=== PATIENT | male | born 1970 | race Caucasian/White ===

== ENCOUNTER 2023-08-07 00:30 | Emergency (ER) | payer OTHER ==
--- NOTE | 2023-08-07 01:22 | XR ---
EXAMINATION TYPE: XR chest 2V DATE OF EXAM: 08/07/2023 COMPARISON: Chest x-ray April 20, 2013 HISTORY: Chest pain. TECHNIQUE: Frontal and lateral views of the chest are obtained. FINDINGS: There is no focal air space opacity, pleural effusion, or pneumothorax seen. The cardiac silhouette size is stable and within normal limits. The osseous structures are intact. IMPRESSION: No acute process.
--- NOTE | 2023-08-07 02:08 | ED ---
Chest Pain HPI - General Chief Complaint: Chest Pain Stated Complaint: chest pain,vomitting Time Seen by Provider: 08/07/23 01:46 Source: patient, RN notes reviewed, old records reviewed Mode of arrival: ambulatory Limitations: no limitations - History of Present Illness Initial Comments: This is a 53-year-old male to ER for evaluation of chest pain. Patient has significant long history of heroin use and abuse and currently going through active withdrawal. Patient feels shaky lightheaded dizzy sweaty at times. But chest pain is significant. Patient has no recent illness no shortness of breath no travel history or sick contacts. No history of heart disease patient does suffer from COPD MD Complaint: chest pain -: days(s) (2) Pain Location: substernal, left chest, right chest, epigastric Pain Radiation: back Severity: moderate Severity scale (1-10): 7 Quality: sharp Consistency: constant, intermittent Worsens With: nothing Anginal Symptoms: nausea, vomiting, dyspnea, sense of impending doom Other Symptoms: palpitations Treatments Prior to Arrival: none - Related Data Allergies Allergy/AdvReac Type Severity Reaction Status Date / Time No Known Allergies Allergy Verified 08/07/23 00:35 Review of Systems ROS Statement: Those systems with pertinent positive or pertinent negative responses have been documented in the HPI. ROS Other: All systems not noted in ROS Statement are negative. EKG Findings - EKG Comments: EKG Findings:: EKG is sinus tachycardia 111 FL 155 QRS 101 QTc 400 Past Medical History Past Medical History: COPD Additional Past Medical History / Comment(s): aortic anerysum, pulmonary dissection History of Any Multi-Drug Resistant Organisms: None Reported Past Psychological History: No Psychological Hx Reported Smoking Status: Current every day smoker Past Alcohol Use History: None Reported Past Drug Use History: Heroin, Marijuana General Exam Limitations: altered mental status General appearance: alert, in no apparent distress, anxious, in distress Head exam: Present: atraumatic, normocephalic, normal inspection Eye exam: Present: normal appearance, PERRL, EOMI. Absent: scleral icterus, conjunctival injection, periorbital swelling ENT exam: Present: normal exam, mucous membranes moist Neck exam: Present: normal inspection. Absent: tenderness, meningismus, lymphad enopathy Respiratory exam: Present: normal lung sounds bilaterally. Absent: respiratory distress, wheezes, rales, rhonchi, stridor Cardiovascular Exam: Present: regular rate, normal rhythm, normal heart sounds. Absent: systolic murmur, diastolic murmur, rubs, gallop, clicks GI/Abdominal exam: Present: soft, normal bowel sounds. Absent: distended, tenderness, guarding, rebound, rigid Extremities exam: Present: normal inspection, full ROM, normal capillary refill. Absent: tenderness, pedal edema, joint swelling, calf tenderness Back exam: Present: normal inspection Neurological exam: Present: alert, oriented X3, CN II-XII intact Psychiatric exam: Present: normal affect, normal mood Skin exam: Present: warm, dry, intact, normal color. Absent: rash Course Vital Signs 08/07/23 08/07/23 08/07/23 00:33 02:30 03:06 Temperature 98.1 F 97.5 F L Pulse Rate 119 H 71 94 Respiratory 20 18 20 Rate Blood Pressure 125/106 130/113 O2 Sat by Pulse 96 95 97 Oximetry 08/07/23 08/07/23 08/07/23 03:30 04:00 04:30 Temperature Pulse Rate 76 77 83 Respiratory 17 18 16 Rate Blood Pressure 130/113 141/118 146/101 O2 Sat by Pulse 94 L 97 95 Oximetry 08/07/23 04:37 Temperature Pulse Rate 84 Respiratory 17 Rate Blood Pressure 115/94 O2 Sat by Pulse 92 L Oximetry - Reevaluation(s) Reevaluation #1: 08/07/23 02:07 Medical record is reviewed Reevaluation #2: 08/07/23 02:07 Patient symptoms are improving Reevaluation #3: 08/07/23 02:07 Patient informed of results and questions answered Studies Chest x-ray is negative for acute disease Reevaluation #4: Was pt. sent in by a medical professional or institution (, PA, BUNK HOUSE WORKER, urgent care, hospital, or care home...) When possible be specific @ -no Did you speak to anyone other than the patient for history (EMS, parent, family, police, friend...)? What history was obtained from this source @ -no Did you review nursing and triage notes (agree or disagree)? Why? @ -agree Are old charts reviewed (outside hosp., previous admission, EMS record, old EKG, old radiological studies, urgent care reports/EKG's, care home records)? Report findings @ -yes Differential Diagnosis (chest pain, altered mental status, abdominal pain women, abdominal pain men, vaginal bleeding, weakness, fever, dyspnea, syncope, headache, dizziness, GI bleed, back pain, seizure, CVA, palpatations, mental health, musculoskeletal)? @ -prior EKG interpreted by me (3pts min.). @ -yes X-rays interpreted by me (1pt min.). @ -yes negative for acute disease CT interpreted by me (1pt min.). @ -no U/S interpreted by me (1pt. min.). @ -no What testing was considered but not performed or refused? (CT, X-rays, U/S, labs)? Why? @ -none What meds were considered but not given or refused? Why? @ -none Did you discuss the management of the patient with other professionals (professionals i.e. , PA, BUNK HOUSE WORKER, lab, RT, psych nurse, long term care social worker, clerical order filler, teacher, correction officer, transplant case manager)? Give summary @ -no Was smoking cessation discussed for >3mins.? @ -no Was critical care preformed (if so, how long)? @ -no Were there social determinants of health that impacted care today? How? (Homelessness, low income, unemployed, alcoholism, drug addiction, transportation, low edu. Level, literacy, decrease access to med. care, shelter, rehab)? @ -none Was there de-escalation of care discussed even if they declined (Discuss DNR or withdrawal of care, Hospice)? DNR status @ -no What co-morbidities impacted this encounter? (DM, HTN, Smoking, COPD, CAD, Cancer, CVA, ARF, Chemo, Hep., AIDS, mental health diagnosis, sleep apnea, morbid obesity)? @ -none Was patient admitted / discharged? Hospital course, mention meds given and route, prescriptions, significant lab abnormalities, going to OR and other pertinent info. @ - 53 male to ER for evaluation of chest pain today. Chest pain is resolved here in the ER testing is normal, patient feels well and can be discharged home Discharge Undiagnosed new problem with uncertain prognosis? @ -no Drug Therapy requiring intensive monitoring for toxicity (Heparin, Nitro, Insulin, Cardizem)? @ -no Were any procedures done? @ -no Diagnosis/symptom? @ -Chest pain Acute, or Chronic, or Acute on Chronic? @ -Acute Uncomplicated (without systemic symptoms) or Complicated (systemic symptoms)? @ -Complicated Side effects of treatment? @ -no Exacerbation, Progression, or Severe Exacerbation? @ -exacerbation Poses a threat to life or bodily function? How? (Chest pain, USA, MD, pneumonia, PE, COPD, DKA, ARF, appy, cholecystitis, CVA, Diverticulitis, Homicidal, Suic idal, threat to staff... and all critical care pts) @ -yes with cause of chest pain Reevaluation #5: Differential Chest Pain: Stable Angina, Unstable Angina, STEMI, NSTEMI Aortic Dissection, Pneumothorax, Musculoskeletal, Esophageal Spasm GERD, Cholecystitis, Pancreatitis, Zoster, this is not meant to be an all-inclusive list. Chest Pain MDM - MDM 53 male to ER for evaluation of chest pain today. Chest pain is resolved here in the ER testing is normal, patient feels well and can be discharged home Disposition Clinical Impression: Atypical chest pain, Opioid withdrawal Disposition: HOME SELF-CARE Condition: Fair Instructions (If sedation given, give patient instructions): Opioid Withdrawal (ED) Is patient prescribed a controlled substance at d/c from ED?: No Referrals: Ora Shelley MD [Primary Care Provider] - 1-2 days Time of Disposition: 04:30
[2023-08-07] MEDS: cloNIDine 0.3 MG/24HR PATCH TRANSDERM STA (02:32)
[2023-08-07] MEDS: HYDROmorphone 1 MG/ML 1 ML SYRINGE IVP STA (02:35)
[2023-08-07] MEDS: SODIUM CHLORIDE 0.9% 1,000 ML IV STA (02:52)
[2023-08-07] MEDS: SODIUM CHLORIDE 0.9% 500 ML 500 ML IV STA (02:53)
[2023-08-07] MEDS: PROCHLORPERAZINE INJ 10 MG/2 ML VIAL IVP STA (02:55)
[2023-08-07 02:58] LABS: Basophils # (A) 0.1 k/uL (0-0.2); Basophils % (A) 1 %; Eosinophils # (A) 0.2 k/uL (0-0.7); Eosinophils % (A) 1 %; HCT 42.8 % (39.0-53.0); HGB 14.5 gm/dL (13.0-17.5); Lymphocytes % (A) 18 %; MCH 29.7 pg (25.0-35.0); MCHC 33.9 g/dL (31.0-37.0); MCV 87.7 fL (80.0-100.0); Mean Platelet Volume 7.2; Monocytes # (A) 0.6 k/uL (0-1.0); Monocytes % (A) 6 %; Neutrophils # (A) 8.4 k/uL (1.3-7.7); Neutrophils % (A) 74 %; Platelet Count 227 k/uL (150-450); RBC 4.88 m/uL (4.30-5.90); RDW 13.3 % (11.5-15.5); WBC 11.4 k/uL (3.8-10.6)
[2023-08-07] MEDS: cloNIDine HCL 0.1 MG TAB PO STA (02:58)
[2023-08-07] MEDS: KETOROLAC 15 MG/ML 1 ML VIAL IVP STA (02:59)
[2023-08-07 03:09] LABS: INR 1.2 (<1.2); Prothrombin Time 12.5 sec (10.0-12.5)
[2023-08-07 03:11] LABS: ALT 20 U/L (4-49); AST 25 U/L (17-59); African American GFR (CKD) >90 (>60 ml/min/1.73 sqM); Albumin 4.6 g/dL (3.5-5.0); Alkaline Phosphatase 81 U/L (38-126); Anion Gap 8 mmol/L; Blood Urea Nitrogen 16 mg/dL (9-20); Calcium 9.7 mg/dL (8.4-10.2); Carbon Dioxide 23 mmol/L (22-30); Chloride 108 mmol/L (98-107); Glucose 110 mg/dL (74-99); Magnesium 2.2 mg/dL (1.6-2.3); Non-African American GFR(CKD) 87 (>60 ml/min/1.73 sqM); Potassium 4.1 mmol/L (3.5-5.1); Sodium 139 mmol/L (137-145); Total Bilirubin 0.8 mg/dL (0.2-1.3); Total Protein 7.9 g/dL (6.3-8.2)
[2023-08-07 03:27] VITALS: TEMP 97.5
[2023-08-07] MEDS: SODIUM CHLORIDE 0.9% 1,000 ML IV SCH (03:59)
[2023-08-07 04:50] VITALS: BP 115/94; PULSE 84; RESP 17
== END 2023-08-07 04:54 | disposition home or self-care (01) ==
LOC: EC 00:30
DX: R07.89 Other chest pain (principal); F11.23 Opioid dependence with withdrawal; J44.9 Chronic obstructive pulmonary disease, unspecified; F12.90 Cannabis use, unspecified, uncomplicated; F17.200 Nicotine dependence, unspecified, uncomplicated
CPT/HCPCS: 99285 ×2; 96374 ×2; 96375 ×3; 96361 ×4; 36415; 93005; 80053; 83735; 84484; 85025; 85610; 85730; 71046; J0780; J3360; J1885

== ENCOUNTER 2023-08-29 14:42 | Observation (INO) | payer OTHER ==
[2023-08-29] MEDS: NITROGLYCERIN SL TABS 0.4 MG TAB SUBLINGUAL STA (16:37)
[2023-08-29] MEDS: ONDANSETRON 4 MG/2 ML VIAL IVP STA (16:38)
[2023-08-29] MEDS: SODIUM CHLORIDE 0.9% 1,000 ML IV STA ×2 (16:39→18:04)
[2023-08-29] MEDS: LORazepam 2 MG/ML INJ IV STA (16:40)
--- NOTE | 2023-08-29 16:41 | ED ---
Chest Pain HPI - General Chief Complaint: Chest Pain Stated Complaint: Chest pain/SOB/Vomitting Time Seen by Provider: 08/29/23 15:29 Source: patient, RN notes reviewed, old records reviewed Mode of arrival: wheelchair Limitations: no limitations - History of Present Illness Initial Comments: 53-year-old male with a history of aortic pathology who admits to being a heroin addict also drinking alcohol who presents today with complaints of nausea vomiting for the last several days he has not had any heroin for the past several days complains of chest pain 8/10 in severity gets sometimes worse sometimes better central in his chest and does get worse with movement not worse with deep breathing he was short of breath with this also however no cough no fevers or chills he is nauseated still at this time. No abdominal complaints MD Complaint: chest pain, other - Related Data Home Medications Medication Instructions Recorded Confirmed Fluticasone Propion/Salmeterol 1 puff INHALATION RT-BID 08/29/23 08/29/23 [Wixela [id number] Inhub] Metoprolol Tartrate [Lopressor] 12.5 mg PO BID 08/29/23 08/29/23 Omeprazole 20 mg PO DAILY 08/29/23 08/29/23 Ondansetron Odt [Zofran Odt] 4 mg PO Q8HR PRN 08/29/23 08/29/23 cloNIDine HCL [Catapres] 0.1 mg PO DIRECTED 08/29/23 08/29/23 lisinopriL 40 mg PO DAILY 08/29/23 08/29/23 Allergies Allergy/AdvReac Type Severity Reaction Status Date / Time No Known Allergies Allergy Verified 08/29/23 17:59 Review of Systems ROS Statement: Those systems with pertinent positive or pertinent negative responses have been documented in the HPI. ROS Other: All systems not noted in ROS Statement are negative. Past Medical History Past Medical History: COPD Additional Past Medical History / Comment(s): aortic anerysum, pulmonary dissection History of Any Multi-Drug Resistant Organisms: None Reported Past Surgical History: Cholecystectomy Past Psychological History: No Psychological Hx Reported Smoking Status: Current every day smoker Past Alcohol Use History: None Reported Past Drug Use History: Heroin, Marijuana General Exam - General Exam Comments Initial Comments: This is a well-developed well-nourished awake alert oriented x 4 male Limitations: no limitations General appearance: alert, anxious Head exam: Present: atraumatic, normocephalic, normal inspection Eye exam: Present: normal appearance, PERRL, EOMI. Absent: scleral icterus, conjunctival injection, periorbital swelling ENT exam: Present: normal exam, mucous membranes moist Neck exam: Present: normal inspection, full ROM, other (No stridor JVD or bruits). Absent: tenderness, meningismus, lymphadenopathy Respiratory exam: Present: normal lung sounds bilaterally, chest wall tenderness. Absent: respiratory distress, wheezes, rales, rhonchi, stridor Cardiovascular Exam: Present: normal rhythm, tachycardia, normal heart sounds. Absent: systolic murmur, diastolic murmur, rubs, gallop, clicks GI/Abdominal exam: Present: soft, normal bowel sounds. Absent: distended, tenderness, guarding, rebound, rigid, bruit, pulsatile mass Extremities exam: Present: normal inspection, full ROM, normal capillary refill. Absent: tenderness, pedal edema, joint swelling, calf tenderness Back exam: Present: normal inspection Neurological exam: Present: alert, oriented X3, CN II-XII intact Psychiatric exam: Present: normal affect, normal mood Skin exam: Present: warm, dry, intact, normal color. Absent: rash Course Vital Signs 08/29/23 08/29/23 14:43 17:23 Temperature 98.1 F Pulse Rate 122 H 85 Respiratory 24 18 Rate Blood Pressure 114/74 107/90 O2 Sat by Pulse 97 Oximetry - Reevaluation(s) Reevaluation #1: 08/29/23 18:46 Reevaluation patient finds he does feel somewhat improved after fluids and medication rendered. Chest Pain MDM - MDM I did discuss findings with the patient also with Dr. Lopez the patient will be admitted for evaluation of chest pain heroin withdrawal and dyspnea. Was pt. sent in by a medical professional or institution (DrCharlie, PA, ARCHIVAL STUDIES PROFESSOR, urgent care, hospital, or long-term...) When possible be specific @ -No Did you speak to anyone other than the patient for history (EMS, parent, family, police, friend...)? What history was obtained from this source @ -No Did you review nursing and triage notes (agree or disagree)? Why? @ -I reviewed and agree with nursing and triage notes Were old charts reviewed (outside hosp., previous admission, EMS record, old EKG, old radiological studies, urgent care reports/EKG's, long-term records)? Report findings @ -Old charts were reviewed Differential Diagnosis (chest pain, altered mental status, abdominal pain women, abdominal pain men, vaginal bleeding, weakness, fever, dyspnea, syncope, headache, dizziness, GI bleed, back pain, seizure, CVA, palpatations, mental health, musculoskeletal)? @ -Chest pain, dyspnea, heroin withdrawal EKG interpreted by me (3pts min.). @ -As above EKG shows ventricular rate of 124 tachycardia with artifact this was compared with an EKG dated 08/07/2023 interpreted by me. Ventricular rate 124 QRS 92 QT/QTc 312/386 left anterior fascicular block moderate voltage criteria for LVH nonspecific anterior configuration. X-rays interpreted by me (1pt min.). @ -[Chest x-ray interpreted by me evidence of COPD. No definitive consolidations CT interpreted by me (1pt min.). @ -CT angio interpreted by me some dilatation of the aortic root slightly larger than previous study. No evidence of acute dissection U/S interpreted by me (1pt. min.). @ -None done What testing was considered but not performed or refused? (CT, X-rays, U/S, labs)? Why? @ -None What meds were considered but not given or refused? Why? @ -None Did you discuss the management of the patient with other professionals (professionals i.e. , PA, ARCHIVAL STUDIES PROFESSOR, lab, RT, psych nurse, social service technician, coin rolling machine operator, teacher, national insurance officer, correctional case manager)? Give summary @ -Did discuss this with Dr. Case Was smoking cessation discussed for >3mins.? @ -No Was critical care preformed (if so, how long)? @ -No Were there social determinants of health that impacted care today? How? (Homelessness, low income, unemployed, alcoholism, drug addiction, transportation, low edu. Level, literacy, decrease access to med. care, alf, rehab)? @ -Heroin addiction Was there de-escalation of care discussed even if they declined (Discuss DNR or withdrawal of care, Hospice)? DNR status @ -No What co-morbidities impacted this encounter? (DM, HTN, Smoking, COPD, CAD, Cancer, CVA, ARF, Chemo, Hep., AIDS, mental health diagnosis, sleep apnea, morbid obesity)? @ -COPD, heroin addiction Was patient admitted / discharged? Hospital course, mention meds given and route, prescriptions, significant lab abnormalities, going to OR and other pertinent info. @ -Hospital course patient was admitted for inpatient evaluation of chest pain dyspnea likely COPD exacerbation heroin withdrawal intractable nausea vomiting Undiagnosed new problem with uncertain prognosis? @ -No Drug Therapy requiring intensive monitoring for toxicity (Heparin, Nitro, Insulin, Cardizem)? @ -No Were any procedures done? @ -No Diagnosis/symptom? @ -Acute chest pain, COPD exacerbation, heroin withdrawal, intractable nausea vomiting, dehydration Acute, or Chronic, or Acute on Chronic? @ -Acute Uncomplicated (without systemic symptoms) or Complicated (systemic symptoms)? @ -Default Side effects of treatment? @ -No Exacerbation, Progression, or Severe Exacerbation? @ -No Poses a threat to life or bodily function? How? (Chest pain, USA, [place], pneumonia, PE, COPD, DKA, ARF, appy, cholecystitis, CVA, Diverticulitis, Homicidal, Suic idal, threat to staff... and all critical care pts) @ -Chest pain, heroin withdrawal, COPD exacerbation Disposition Clinical Impression: Chest pain, COPD with exacerbation, Opioid withdrawal, Intractable nausea and vomiting, Dehydration Disposition: ADMITTED IP TO THIS HOSP Condition: Stable Referrals: None,Stated [Primary Care Provider] - 1-2 days Decision Date: 08/29/23 Decision Time: 18:53
[2023-08-29 16:52] LABS: Basophils # (A) 0.1 k/uL (0-0.2); Basophils % (A) 0 %; Eosinophils % (A) 0 %; HCT 45.2 % (39.0-53.0); HGB 15.3 gm/dL (13.0-17.5); Lymphocytes # (A) 1.5 k/uL (1.0-4.8); Lymphocytes % (A) 12 %; MCH 29.5 pg (25.0-35.0); MCHC 33.8 g/dL (31.0-37.0); Mean Platelet Volume 7.7; Monocytes # (A) 0.6 k/uL (0-1.0); Monocytes % (A) 5 %; Neutrophils # (A) 10.3 k/uL (1.3-7.7); Neutrophils % (A) 82 %; Platelet Count 321 k/uL (150-450); RDW 13.8 % (11.5-15.5); WBC 12.5 k/uL (3.8-10.6)
[2023-08-29 17:07] LABS: ALT 19 U/L (4-49); AST 40 U/L (17-59); African American GFR (CKD) 87 (>60 ml/min/1.73 sqM); Albumin 4.7 g/dL (3.5-5.0); Alkaline Phosphatase 86 U/L (38-126); Anion Gap 14 mmol/L; Blood Urea Nitrogen 24 mg/dL (9-20); Carbon Dioxide 17 mmol/L (22-30); Chloride 103 mmol/L (98-107); Glucose 113 mg/dL (74-99); Lipase 29 U/L (23-300); Non-African American GFR(CKD) 76 (>60 ml/min/1.73 sqM); Potassium 4.4 mmol/L (3.5-5.1); Sodium 134 mmol/L (137-145); Total Bilirubin 0.9 mg/dL (0.2-1.3); Total Protein 8.3 g/dL (6.3-8.2)
[2023-08-29 17:12] LABS: INR 1.2 (<1.2); Partial Thromboplastin Time 27.2 sec (22.0-30.0); Prothrombin Time 12.4 sec (10.0-12.5)
[2023-08-29 17:14] LABS: NT-Pro-B-Type Natriuretic Pept 70 pg/mL
--- NOTE | 2023-08-29 17:14 | XR ---
EXAMINATION TYPE: XR chest 2V DATE OF EXAM: 08/29/2023 COMPARISON: 08/07/2023 HISTORY: 53-year-old male with chest pain TECHNIQUE: PA and lateral views FINDINGS: Heart normal size. Aorta and pulmonary vasculature within normal limits. Mild interstitial prominence as a chronic appearance. No consolidation or pleural effusion. Mild hyperinflation. IMPRESSION: Possible underlying COPD. There are chronic changes without acute cardiopulmonary process.
--- NOTE | 2023-08-29 17:38 | CT ---
EXAMINATION TYPE: CT angio thor/abd pel aorta DATE OF EXAM: 08/29/2023 COMPARISON: 04/20/2013 HISTORY: 53-year-old male Chest pain, SOB, hx of aneurysm. TECHNIQUE: Contiguous axial scanning of the chest, abdomen, and pelvis performed without and with IV Contrast, patient injected with 100 ml mL of Isovue 370. Coronal and sagittal MIP reconstructions per formed. 3-D reconstructions generated on a dedicated workstation. CT DLP: [id number] mGycm Automated exposure control for dose reduction was used. FINDINGS: Chest: Heart normal size without pericardial effusion. Ascending aorta aneurysmal at 4.7 cm versus 4.4 cm back in 2013. Findings configuration to the aortic arch. Ectatic upper descending thoracic aorta 3.1 cm. No evidence for aortic dissection or acute intramural hematoma. No thoracic lymphadenopathy by CT size criteria. Some adherent secretions within the right bronchus intermedius. Enlarged caliber to the main right and left pulmonary arteries up to 2.7 cm suggesting underlying pul monary arterial hypertension. No pulmonary embolus is seen. Mild diffuse bronchial wall thickening without consolidation or pleural effusion. ABDOMEN: 1.1 cm hypodensity at the mid hepatic dome, likely cyst. No focal liver lesion. No biliary ductal dil atation. Cholecystectomy clips. Low-density right adrenal nodule with attenuation of 8 Hounsfield units suggesting a lipid rich adren al adenoma, new from 2012. Left adrenal gland, kidneys, and pancreas within normal limits. Spleen mildly enlarged at 14.0 cm. No dilated small bowel, free fluid, or free air. No mesenteric or retroperitoneal lymphadenopathy. Normal appendix. Mild stool burden. Mild sigmoid diverticulosis. No pericolonic inflammatory change. Pelvis: Bladder is urine distended. Central prostatic calcifications. No abnormal fluid collection in the pel vis or pelvic lymphadenopathy. Bones: Mild degenerative change at the hips. Degenerative bony bridging left SI joint. Moderate to advanced spondylotic changes lumbar spine. Degenerative grade 1 retrolisthesis L1-L2, L2-L3, L3-L4, and L4-L5. Fatty matrix hemangioma within the right L2 vertebral body. IMPRESSION: 1. NO EVIDENCE FOR AORTIC DISSECTION. NO PULMONARY EMBOLUS SEEN. 2. ASCENDING AORTIC ANEURYSM CURRENTLY 4.7 CM VERSUS 4.4 CM BACK IN 2013. 3. BRONCHIAL WALL THICKENING SUGGESTS BRONCHITIS OR CHRONIC ASTHMA. 4. THERE MAY BE UNDERLYING PULMONARY ARTERIAL HYPERTENSION. CLINICALLY CORRELATE. 5. 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 6. MILD SPLENOMEGALY OF 14.0 CM. 7. MILD SIGMOID DIVERTICULOSIS WITHOUT ACUTE DIVERTICULITIS.
[2023-08-29] MEDS ORDERED: NALOXONE 0.4 MG/ML 1 ML VIAL IV PRN (18:54)
[2023-08-29] MEDS ORDERED: IPRATROPIUM-ALBUTEROL 3 ML NEB INHALATION SCH (20:00)
[2023-08-29] MEDS: IPRATROPIUM-ALBUTEROL 3 ML NEB INHALATION SCH (20:03)
[2023-08-29] MEDS: SYMBICORT 80-4.5 MCG INHALER INHALATION SCH (20:03)
[2023-08-29] MEDS: SODIUM CHLORIDE 0.9% 1,000 ML IV SCH (20:11)
[2023-08-29] MEDS: METOPROLOL TARTRATE 12.5 MG TAB PO SCH (20:14)
[2023-08-29] MEDS: cloNIDine HCL 0.1 MG TAB PO SCH (20:19)
[2023-08-29] MEDS: ONDANSETRON 4 MG/2 ML VIAL IVP PRN (22:06)
[2023-08-29] MEDS: LORazepam 0.5 MG TAB PO PRN (22:06)
[2023-08-30] MEDS: PANTOPRAZOLE 40 MG/10 ML VIAL IV SCH (07:56)
[2023-08-30] MEDS: lisinopriL 20 MG TAB PO SCH (08:20)
[2023-08-30] MEDS: ACETAMINOPHEN TAB 325 MG TAB PO PRN (08:23)
[2023-08-30 12:35] VITALS: RESP 16
[2023-08-30 13:10] VITALS: BMI 31.1
[2023-08-30 16:03] VITALS: BP 128/81; PULSE 82; TEMP 98.7
--- NOTE | 2023-08-30 16:22 | US ---
EXAMINATION TYPE: US venous doppler duplex UE LT DATE OF EXAM: 08/30/2023 Exam done portable COMPARISON: NONE CLINICAL INDICATION: Male, 53 years old with history of DVT; Left arm swelling SIDE PERFORMED: Left TECHNIQUE: Grayscale, color doppler, spectral doppler imaging performed of the deep veins of the lef t upper extremity. FINDINGS: There is normal flow, compressibility and vascular waveforms. Left Arm: Appears negative for DVT IMPRESSION: No evidence for DVT within the left upper extremity.
--- NOTE | 2023-08-30 17:16 | P.HPIM ---
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 No abdominal complaints -- Patient is quite anxious and shaky at the time of examination and does not provide any further details Blood work completed in ED reveals a WBC of 12.5, hemoglobin of 15.3 and platelet count of 321, sodium 134, potassium 4.4, BUN/creatinine of 24/1.1, s donovan alcohol level less than 10 Chest x-ray reveals underlying COPD with chronic changes but no acute cardiopulmonary process CT of the chest does not reveal any aortic dissection, reveals ascending aortic aneurysm 4.7 cm up from 4.4 cm in 2013; bronchial wall thickening suggestive of bronchitis or chronic asthma; 8 mm adrenal adenoma, mild splenectomy and mild diverticulosis Review of Systems REVIEW OF SYSTEMS: CONSTITUTIONAL: No fever, no malaise, no fatigue. HEENT: No recent visual problems or hearing problems. Denied any sore throat. CARDIOVASCULAR: No chest pain, orthopnea, PND, no palpitations, no syncope. PULMONARY: No shortness of breath, no cough, no hemoptysis. GASTROINTESTINAL: No diarrhea, no nausea, no vomiting, no abdominal pain. NEUROLOGICAL: No headaches, no weakness, no numbness. HEMATOLOGICAL: Denies any bleeding or petechiae. GENITOURINARY: Denies any burning micturition, frequency, or urgency. MUSCULOSKELETAL/RHEUMATOLOGICAL: Denies any joint pain, swelling, or any muscle pain. ENDOCRINE: Denies any polyuria or polydipsia. The rest of the 14-point review of systems is negative. Past Medical History Past Medical History: COPD Additional Past Medical History / Comment(s): aortic anerysum, pulmonary dissection History of Any Multi-Drug Resistant Organisms: None Reported Past Surgical History: Cholecystectomy Past Anesthesia/Blood Transfusion Reactions: Unable to Obtain Past Psychological History: No Psychological Hx Reported Smoking Status: Current every day smoker Past Alcohol Use History: None Reported Past Drug Use History: Heroin, Marijuana - Past Family History Father Family Medical History: Congestive Heart Failure (CHF), Diabetes Mellitus, Myocardial Infarction (SD) Mother Family Medical History: Congestive Heart Failure (CHF), Diabetes Mellitus, Myocardial Infarction (SD) Brother(s) Family Medical History: Myocardial Infarction (SD) Medications and Allergies Home Medications Medication Instructions Recorded Confirmed Type Fluticasone Propion/Salmeterol 1 puff INHALATION RT-BID 08/29/23 08/29/23 History [Wixela 250-50 Inhub] Metoprolol Tartrate [Lopressor] 12.5 mg PO BID 08/29/23 08/29/23 History Omeprazole 20 mg PO DAILY 08/29/23 08/29/23 History Ondansetron Odt [Zofran Odt] 4 mg PO Q8HR PRN 08/29/23 08/29/23 History cloNIDine HCL [Catapres] 0.1 mg PO DIRECTED 08/29/23 08/29/23 History lisinopriL 40 mg PO DAILY 08/29/23 08/29/23 History Allergies Allergy/AdvReac Type Severity Reaction Status Date / Time No Known Allergies Allergy Verified 08/29/23 17:59 Physical Exam Vitals: Vital Signs Temp Pulse Pulse Resp BP BP Pulse Ox 08/30/23 08:00 97.7 F 98 18 121/82 95 08/30/23 04:00 98.5 F 89 20 121/68 96 08/30/23 02:00 68 20 08/30/23 00:00 98.1 F 68 20 99/68 96 08/29/23 21:00 98 F 82 20 123/86 94 L 08/29/23 20:13 87 18 117/84 95 08/29/23 20:10 75 08/29/23 20:05 75 08/29/23 20:00 81 08/29/23 19:03 80 18 110/94 94 L 08/29/23 17:23 85 18 107/90 08/29/23 14:43 98.1 F 122 H 24 114/74 97 Intake and Output 08/29/23 08/30/23 08/30/23 22:59 06:59 14:59 Intake Total 540 Balance 540 Intake: Oral 540 Other: Voiding Method Toilet Toilet Toilet Urinal Urinal Urinal # Voids 1 3 3 Weight 104.326 kg General appearance: alert, anxious Head exam: Present: atraumatic, normocephalic, normal inspection Eye exam: Present: normal appearance, PERRL, EOMI. Absent: scleral icterus, conjunctival injection, periorbital swelling ENT exam: Present: normal exam, mucous membranes moist Neck exam: Present: normal inspection, full ROM, other (No stridor JVD or bruits). Absent: tenderness, meningismus, lymphadenopathy Respiratory exam: Present: normal lung sounds bilaterally, chest wall tenderne ss. Absent: respiratory distress, wheezes, rales, rhonchi, stridor Cardiovascular Exam: Present: normal rhythm, tachycardia, normal heart sounds. Absent: systolic murmur, diastolic murmur, rubs, gallop, clicks GI/Abdominal exam: Present: soft, normal bowel sounds. Absent: distended, tenderness, guarding, rebound, rigid, bruit, pulsatile mass Extremities exam: Present: normal inspection, full ROM, normal capillary refill. Absent: tenderness, pedal edema, joint swelling, calf tenderness Neurological exam: Present: alert, oriented X3, CN II-XII intact Psychiatric exam: Present: normal affect, normal mood Skin exam: Present: warm, dry, intact, normal color. Absent: rash Results CBC & Chem 7: 08/29/23 16:42 08/29/23 16:42 Labs: Abnormal Lab Results - Last 24 Hours (Table) 08/29/23 08/29/23 08/29/23 Range/Units 16:42 16:42 16:42 WBC 12.5 H (3.8-10.6) k/uL Neutrophils # 10.3 H (1.3-7.7) k/uL INR 1.2 H (<1.2) Sodium 134 L (137-145) mmol/L Carbon Dioxide 17 L (22-30) mmol/L BUN 24 H (9-20) mg/dL Glucose 113 H (74-99) mg/dL Total Protein 8.3 H (6.3-8.2) g/dL Thrombosis Risk Factor Assmnt - Choose All That Apply Any of the Below Risk Factors Present?: Yes Each Factor Represents 1 point: Age 41-60 years, Obesity (BMI >25) Other Risk Factors: No Other congenital or acquired thrombophilia - If yes, enter type in comment: No Thrombosis Risk Factor Assessment Total Risk Factor Score: 2 Thrombosis Risk Factor Assessment Level: Low Risk Assessment and Plan Assessment: 1. Chest pain --Patient has been placed on telemetry with plans to monitor EKG and trend troponin; patient has been ruled out for acute coronary syndrome -- Cardiology is consulted for further recommendations 2. COPD exacerbation -Place patient on IV Solu-Medrol 40 mg every 8 hours; bronchodilator nebulizer treatments; doxycycline 100 mg twice daily; continue with home inhaler therapy in form of Symbicort 2 puffs twice daily -- Continue with O2 per nasal cannula keeping O2 saturation greater than 90% -- Will plan to consult pulmonary if any further decline in oxygen levels 3. Opioid withdrawal; supportive treatment; patient remains on IV Ativan as needed 4. Intractable nausea and vomiting; possibly related to opioid withdrawal; mary terry has been placed on CIWA protocol -- Continue to use Zofran 4 mg every 6 hours as needed -Protonix 40 mg daily 5. Mild RIGO/dehydration; patient remains on IV fluids in form of normal saline at a rate of 130 cc an hour; monitor strict CHAVA's, daily weights, renal function electrolytes; avoid nephrotoxins and hypotension 6. Hypertension; lisinopril 40 mg daily, metoprolol 12.5 mg twice daily; clonidine 0.1 mg twice daily DVT prophylaxis; SCDs CODE STATUS; full code
[2023-08-30] MEDS ORDERED: methylPREDNISolone SOD SUCCI 40 MG/ML 1 ML VIAL IV SCH (17:30)
[2023-08-30] MEDS ORDERED: DOXYCYCLINE 100 MG in SODIUM CHLORIDE 0.9% 100 ML IVPB SCH (18:00)
[2023-08-31] MEDS ORDERED: PANTOPRAZOLE 40 MG TABLET PO SCH (07:30)
== END 2023-08-30 18:57 | disposition left against medical advice (07) ==
LOC: EC 14:42 → INTOOBSV 18:55 → 3SCARD 18:55 → UNDODISIN 08-30 18:57
PROVIDERS: ADMIT Internal Medicine; ATTEND Internal Medicine
PROC: HZ2ZZZZ Detoxification Services for Substance Abuse Treatment (ICD-10-PCS; principal; 2023-08-29)
PROC: 05HB33Z Insertion of Infusion Device into Right Basilic Vein, Percutaneous Approach (ICD-10-PCS; 2023-08-30 12:10)
DX: R07.89 Other chest pain (principal); J44.1 Chronic obstructive pulmonary disease with (acute) exacerbation; F11.23 Opioid dependence with withdrawal; N17.9 Acute kidney failure, unspecified; E86.0 Dehydration; I44.4 Left anterior fascicular block; I10 Essential (primary) hypertension; I71.40 Abdominal aortic aneurysm, without rupture, unspecified; K57.30 Diverticulosis of large intestine without perforation or abscess without bleeding; D35.01 Benign neoplasm of right adrenal gland; E66.9 Obesity, unspecified; Z68.31 Body mass index [BMI] 31.0-31.9, adult; Z53.29 Procedure and treatment not carried out because of patient's decision for other reasons; Z79.51 Long term (current) use of inhaled steroids; Z79.899 Other long term (current) drug therapy; Z90.49 Acquired absence of other specified parts of digestive tract; F17.210 Nicotine dependence, cigarettes, uncomplicated; Z82.49 Family history of ischemic heart disease and other diseases of the circulatory system
CPT/HCPCS: 96376 ×2; 96361 ×3; 96375 ×2; 96374; 99285; 36415; 94640 ×3; 93005; 36410; 76937; 85379; 83880; 80053; 83690; 83735; 84484; 85025; 85610; 85730; 71046; 93971; 71275; 74174; G0378 ×2; G0480; J2060; J2405 ×2; C9113; Q9967; 80320